=== PATIENT | female | born 1980 | race African-American/Black ===

== ENCOUNTER 2018-12-04 05:00 | Inpatient (IN) ==
[2018-12-04] MEDS ORDERED: MEPERIDINE 50 MG/1 ML VIAL IV PRN (07:04)
[2018-12-04] MEDS ORDERED: ONDANSETRON 4 MG/2 ML VIAL IV PRN (07:04)
[2018-12-04] MEDS ORDERED: BUTORPHANOL 2 MG/ML VIAL IV PRN (07:04)
[2018-12-04] MEDS ORDERED: ePHEDrine 50 MG/ML AMP IV PRN (07:14)
[2018-12-04] MEDS ORDERED: diphenhydrAMINE 50 MG/1 ML VIAL IV PRN ×2 (07:14)
[2018-12-04] MEDS ORDERED: FAMOTIDINE 20 MG/2 ML VIAL IV ONE (07:14)
[2018-12-04] MEDS ORDERED: LACTATED RINGERS 1,000 ML IV ONE (07:14)
[2018-12-04] MEDS ORDERED: CITRIC ACID/SODIUM CITRATE 30 ML UDCUP PO ONE (07:14)
[2018-12-04] MEDS ORDERED: NALOXONE 0.4 MG/ML VIAL IV PRN (07:14)
[2018-12-04 07:27] LABS: Basophils % 0.5 % (0.0-0.8); Eosinophils # 0.1 10*3/uL (0.0-0.87); Eosinophils % 0.8 % (0.00-10.9); Hematocrit 32.9 VOL% (35.7-47.0); Hemoglobin 11.2 GM/DL (12.0-16.0); Immature Granulocytes % 0.3 %; Immature Granulocytes Absolute 0.02 #; Lymphocytes # 1.8 10*3/uL (1.4-4.0); Lymphocytes % 30.1 % (21.3-54.2); Mean Corpuscular Hemoglobin 28 PG (27-34); Mean Corpuscular Volume 82.7 FL (87-102); Mean Platelet Volume 9.8 FL (9.6-12.0); Monocytes # 0.6 10*3/uL (0.11-0.8); Monocytes % 9.5 % (1.7-12.7); Neutrophils # 3.5 10*3/uL (1.4-7.4); Neutrophils % 58.8 % (38.7-73.9); Platelet Count 264 T/CUMM (130-400); Red Blood Count 3.98 MC/CUMM (3.8-5.5); Red Cell Distribution Width 13.9 % (9.3-17.3)
[2018-12-04] MEDS ORDERED: LABETALOL 100 MG TABLET ONE (07:29)
[2018-12-04] MEDS ORDERED: LACTATED RINGERS 1,000 ML IV SCH ×2 (07:30→11:23)
[2018-12-04] MEDS ORDERED: fentaNYL 2 MCG/ROPIV 0.2% EPID 100 ML EPIDURAL SCH (07:30)
[2018-12-04] MEDS ORDERED: OXYTOCIN/LR 20 UNIT/1,000 ML BAG IV SCH (07:30)
[2018-12-04] MEDS: LABETALOL 100 MG TABLET PO SCH ×3 (07:34→21:42)
[2018-12-04 07:39] LABS: INR 0.9; PT Patient Result 10.1 SECS; Partial Thromboplastin Time 30.3 SECS (0-40)
[2018-12-04 07:54] LABS: Albumin 2.6 G/DL (3.4-5.0); Bilirubin,Direct 0.1 MG/DL (0.0-0.20); Bilirubin,Total 0.4 MG/DL (0.2-1.0); Calcium 8.5 MG/DL (8.5-10.1); Osmolality,Calculated 273.5 MOS/KG (273-304); Potassium 4.1 MMOL/L (3.5-5.1); Total Protein 6.4 G/DL (6.4-8.3); Uric Acid 5.3 MG/DL (2.6-6.0)
[2018-12-04 10:23] LABS: Apearance,Urine CLEAR (Clear); Bilirubin,Urine Negative (Negative); Blood, Urine Negative (Negative); Glucose,Urine (UA) 50 mg/dL (Negative); Ketones,Urine Negative (Negative); Nitrite,Urine Negative (Negative); Protein,Urine Negative; Urine Color Yellow (Yellow); Urine Specific Gravity 1.021 (1.001-1.035)
[2018-12-04] MEDS ORDERED: LIDOCAINE 1% 50 ML VIAL ONE (11:27)
[2018-12-04] MEDS ORDERED: CARBOPROST TROMETHAMINE 250 MCG/ML AMP IM ONE (11:27)
[2018-12-04] MEDS ORDERED: miSOPROStol 200 MCG TABLET ONE (11:27)
[2018-12-04 12:49] LABS: Cord Venous Blood HCO3 21.9 MMOL/L; Cord Venous Blood PCO2 43.7 MMHG; Cord Venous Blood PO2 31.3
[2018-12-04] MEDS ORDERED: OXYTOCIN/LR 20 UNIT/1,000 ML BAG IV ONE (15:14)
[2018-12-04] MEDS ORDERED: BENZOCAINE 20%/MENTHOL 0.5% SPRAY 56 GM CAN TOP PRN (16:19)
[2018-12-04] MEDS ORDERED: HYDROCORTISONE 2.5% RECTAL CREAM 30 GM TUBE TOP PRN (16:19)
[2018-12-04] MEDS ORDERED: LANOLIN 50% CREAM 0.3 OZ TUBE TOP PRN (16:19)
[2018-12-04] MEDS ORDERED: RHO(D) IMMUNE GLOBULIN 300 MCG SYRINGE IM ONE (16:19)
[2018-12-04] MEDS ORDERED: ACETAMINOPHEN/CODEINE 300-30 MG TABLET PO PRN (16:19)
[2018-12-04] MEDS ORDERED: ACETAMINOPHEN 325 MG TABLET PO PRN (16:19)
[2018-12-04] MEDS ORDERED: BISACODYL 10 MG SUPP RECTAL PRN (16:19)
[2018-12-04] MEDS ORDERED: WITCH HAZEL PADS 100/JAR TOP PRN (16:19)
[2018-12-04] MEDS ORDERED: DIPH/TET/ACEL PERT BOOSTER VACCINE 0.5 ML VIAL IM ONE (16:19)
[2018-12-04] MEDS ORDERED: oxyCODONE/ACETAMINOPHEN 5-325 MG TABLET PO PRN (16:19)
[2018-12-04] MEDS ORDERED: MEASLES/MUMPS/RUBELLA VACCINE 0.5 ML VIAL SUBCUT ONE (16:19)
[2018-12-04] MEDS: IBUPROFEN 800 MG TABLET PO PRN (16:27)
[2018-12-04] MEDS: oxyCODONE/ACETAMINOPHEN 5-325 MG TABLET PO PRN (16:27)
[2018-12-04] MEDS: DOCUSATE SODIUM 100 MG CAPSULE PO SCH (21:42)
[2018-12-05 05:54] LABS: Basophils % 0.4 % (0.0-0.8); Eosinophils # 0.1 10*3/uL (0.0-0.87); Eosinophils % 1.3 % (0.00-10.9); Hemoglobin 10.3 GM/DL (12.0-16.0); Immature Granulocytes % 0.3 %; Immature Granulocytes Absolute 0.03 #; Lymphocytes # 2.3 10*3/uL (1.4-4.0); Mean Corpuscular HGB Conc 34.3 GM/DL (32-36); Mean Corpuscular Hemoglobin 29 PG (27-34); Mean Corpuscular Volume 83.1 FL (87-102); Mean Platelet Volume 10.1 FL (9.6-12.0); Monocytes # 0.9 10*3/uL (0.11-0.8); Monocytes % 10.5 % (1.7-12.7); Neutrophils # 5.5 10*3/uL (1.4-7.4); Neutrophils % 61.5 % (38.7-73.9); Platelet Count 223 T/CUMM (130-400); Red Blood Count 3.61 MC/CUMM (3.8-5.5); Red Cell Distribution Width 13.9 % (9.3-17.3); White Blood Count 8.9 T/CUMM (4-12)
[2018-12-05] MEDS: LABETALOL 100 MG TABLET PO SCH ×2 (08:50→20:57)
[2018-12-05] MEDS: DOCUSATE SODIUM 100 MG CAPSULE PO SCH ×2 (08:50→20:58)
[2018-12-05] MEDS: IBUPROFEN 800 MG TABLET PO PRN (18:20)
[2018-12-05] MEDS: oxyCODONE/ACETAMINOPHEN 5-325 MG TABLET PO PRN (18:21)
[2018-12-06] MEDS: IBUPROFEN 800 MG TABLET PO PRN ×2 (00:36→08:53)
[2018-12-06] MEDS: LABETALOL 100 MG TABLET PO SCH (08:51)
[2018-12-06] MEDS: DOCUSATE SODIUM 100 MG CAPSULE PO SCH (08:53)
[2018-12-06] MEDS: oxyCODONE/ACETAMINOPHEN 5-325 MG TABLET PO PRN (08:54)
[2018-12-06 12:48] VITALS: BP 147/88
== END 2018-12-06 12:45 | disposition home or self-care (01) | DRG 807 ==
LOC: N.LD 05:00 → N.OB 15:27
PROVIDERS: ADMIT Obstetrics & Gynecology; ATTEND Obstetrics & Gynecology